=== PATIENT | male | born 1995 | race Caucasian/White ===

== ENCOUNTER 2017-02-25 12:59 | Emergency (ER) | payer SELFPAY ==
[2017-02-25 13:00] VITALS: BMI 26.4
[2017-02-25 13:03] VITALS: BP 134/83; PULSE 85; TEMP 98.6; O2SAT 97
--- NOTE | 2017-02-25 13:32 | C.PDOC ---
History Of Present Illness 21yo male, presents to ED with complaints of cough, congestion and throat pain for the past 2 days. Patient reports cough is associated with yellow sputum; denies any fever or chills. Of note, patient is also complaining of rash to his lower extremity; he states rash has been itchy and he has been scratching the area. Patient also wants to be tested for STD's. No other complaints. Time Seen by Provider: 02/25/17 13:08 Chief Complaint (Nursing): Abnormal Skin Integrity History Per: Patient History/Exam Limitations: no limitations Onset/Duration Of Symptoms: Days (2) Current Symptoms Are (Timing): Still Present Quality Of Symptoms: Itching Past Medical History Reviewed: Historical Data, Nursing Documentation, Vital Signs Vital Signs: Last Vital Signs Temp 98.6 F 02/25/17 13:02 Pulse 85 02/25/17 13:02 Resp 17 02/25/17 13:02 BP 134/83 02/25/17 13:02 Pulse Ox 97 02/25/17 13:44 - Medical History PMH: Anxiety, Depression Surgical History: Hernia Repair Family History: States: Unknown Family Hx - Social History Hx Tobacco Use: Yes Hx Alcohol Use: No Hx Substance Use: No Review Of Systems Constitutional: Negative for: Fever, Chills ENT: Positive for: Nose Congestion, Throat Pain Respiratory: Positive for: Cough, Sputum Skin: Positive for: Rash Physical Exam - Physical Exam Appears: Non-toxic Skin: Warm, Dry, Rash (left lower extremity with macular-papular lesion with erythema, consistent with early cellulitis.) Nose: Normal Oral Mucosa: Moist Throat: Normal, No Erythema, No Exudate Neck: Supple Respiratory: Normal Breath Sounds, No Wheezing Male Genital: Other (patient refused exam) ED Course And Treatment O2 Sat by Pulse Oximetry: 97 (RA) Pulse Ox Interpretation: Normal Medical Decision Making Medical Decision Making: Impression: Bronchitis, cellulitis Plan: -- Chlamydia, GC RNA/TMA -- Augmentin 1 tab PO -- Motrin 600 mg PO Disposition Counseled Patient/Family Regarding: Diagnosis, Need For Followup, Rx Given - Disposition Referrals: [facility] at [facility] [Outside] Disposition: HOME/ ROUTINE Disposition Time: 13:57 Condition: STABLE Additional Instructions: follow up with medical clinic in 2 days call to make an appointment take medications as prescribed return to hospital if symptoms worsens or progress Prescriptions: Amoxicillin/Clavulanate [Augmentin 875 MG-125 MG] 1 tab PO BID 10 Days #20 tab Benzonatate [Tessalon Perles] 100 mg PO TID PRN #15 sgl PRN Reason: Cough Instructions: Acute Bronchitis (ED), Cellulitis (ED) Forms: [facility] (German), General Discharge Instructions, School Excuse Print Language: HUNGARIAN - Clinical Impression Clinical Impression: Skin irritation, Cellulitis, Bronchitis - Scribe Statement The provider has reviewed the documentation as recorded by the Shu Enrique Provider Attestation: All medical record entries made by the Shu were at my direction and personally dictated by me. I have reviewed the chart and agree that the record accurately reflects my personal performance of the history, physical exam, medical decision making, and the department course for this patient. I have also personally directed, reviewed, and agree with the discharge instructions and disposition.
[2017-02-25] MEDS ORDERED: Amoxicillin-Clav 875-125 mg Tab PO STA (13:33)
[2017-02-25] MEDS ORDERED: Amoxicillin-Clav 875-125 mg Tab PO ONE (13:44)
[2017-02-25 14:10] VITALS: RESP 20
== END 2017-02-25 14:09 | disposition home or self-care (01) ==
LOC: C.ER 12:59
DX: J40 Bronchitis, not specified as acute or chronic (principal); L03.116 Cellulitis of left lower limb; L98.8 Other specified disorders of the skin and subcutaneous tissue

== ENCOUNTER 2017-08-14 14:48 | Emergency (ER) | payer MEDICAID, OTHER ==
[2017-08-14 14:48] VITALS: BMI 26.4
[2017-08-14 14:55] VITALS: TEMP 98.6; O2SAT 98
[2017-08-14 15:23] LABS: SQUAMOUS EPITHIAL < 1 /hpf (0-5); URINE BACTERIA RARE (<OCC); URINE BILIRUBIN NEGATIVE (NEGATIVE); URINE BLOOD 3+ (NEGATIVE); URINE CLARITY Hazy (Clear); URINE COLOR Amber (YELLOW); URINE GLUCOSE (UA) NORMAL (Normal); URINE LEUKOCYTE ESTERASE NEG Leu/uL (Negative); URINE PROTEIN 2+ mg/dL (NEGATIVE); URINE UROBILINOGEN NORMAL mg/dL (0.2-1.0)
[2017-08-14] MEDS ORDERED: cefTRIAXone (Rocephin) 250 mg Inj IM STA (15:29)
--- NOTE | 2017-08-14 16:06 | C.PDOC ---
History Of Present Illness Pt c/o dysuria Time Seen by Provider: 08/14/17 14:58 Chief Complaint (Nursing): Male Genitourinary History Per: Patient Onset/Duration Of Symptoms: Hrs (today) Current Symptoms Are (Timing): Still Present Severity: Moderate Quality Of Discomfort: Burning Associated Symptoms: Urinary Symptoms Alleviating Factors: None Additional History Per: Prior Records Past Medical History Reviewed: Historical Data, Nursing Documentation, Vital Signs Vital Signs: Last Vital Signs Temp 98.6 F 08/14/17 14:52 Pulse 95 H 08/14/17 14:52 Resp 17 08/14/17 14:52 BP 119/81 08/14/17 14:52 Pulse Ox 98 08/14/17 14:52 - Medical History PMH: Anxiety, Depression Surgical History: Hernia Repair Family History: States: Unknown Family Hx - Social History Hx Tobacco Use: Yes Hx Alcohol Use: No Hx Substance Use: No - Immunization History Hx Tetanus Toxoid Vaccination: No Hx Influenza Vaccination: No Hx Pneumococcal Vaccination: No Review Of Systems Except As Marked, All Systems Reviewed And Found Negative. Constitutional: Negative for: Fever, Weakness Cardiovascular: Negative for: Chest Pain Gastrointestinal: Negative for: Vomiting, Abdominal Pain Genitourinary: Positive for: Dysuria. Negative for: Scrotal Pain Musculoskeletal: Negative for: Back Pain Skin: Negative for: Rash Neurological: Negative for: Weakness, Numbness Physical Exam - Physical Exam Appears: Non-toxic, No Acute Distress Skin: Normal Color, Warm, Dry, No Rash Head: Atraumatic, Normacephalic Eye(s): bilateral: Normal Inspection, PERRL, EOMI Neck: Normal ROM, Supple Gastrointestinal/Abdominal: Soft, No Tenderness Back: No CVA Tenderness Male Genital: No Testicular Tenderness, No Testicular Swelling, No Scrotal Swelling Extremity: Normal ROM Neurological/Psych: Oriented x3, Normal Motor, Normal Sensation ED Course And Treatment O2 Sat by Pulse Oximetry: 98 Pulse Ox Interpretation: Normal Progress Note: Pt was treated with Rocephin 250mg IM and Zithromax 1g po. Disposition Counseled Patient/Family Regarding: Studies Performed, Diagnosis, Need For Followup - Disposition Referrals: [facility] at [facility] [Outside] Disposition: HOME/ ROUTINE Disposition Time: 16:05 Condition: STABLE Additional Instructions: Follow up in the clinic. Return to the ER if you develop scrotal pain, abdominal or back pain, fever, worsening of symptoms or if you have any other concerns. Instructions: Urethritis (DC) - Clinical Impression Clinical Impression: Urethritis
[2017-08-14 16:15] VITALS: BP 113/68; PULSE 78; RESP 16
== END 2017-08-14 16:14 | disposition home or self-care (01) ==
LOC: C.ER 14:48
DX: N34.2 Other urethritis (principal); Z72.0 Tobacco use
CPT/HCPCS: 81001; 87086; 87491; 87591; 96372; 99284; J0696

== ENCOUNTER 2017-10-18 12:42 | Emergency (ER) | payer MEDICAID, OTHER ==
[2017-10-18 12:42] VITALS: BMI 26.4
[2017-10-18 12:55] VITALS: BP 121/77; PULSE 70; TEMP 98.5; O2SAT 99
[2017-10-18] MEDS ORDERED: cefTRIAXone (Rocephin) 250 mg Inj IM STA (13:02)
[2017-10-18 13:27] LABS: SQUAMOUS EPITHIAL < 1 /hpf (0-5); URINE BACTERIA RARE (<OCC); URINE BILIRUBIN NEGATIVE (NEGATIVE); URINE BLOOD NEGATIVE (NEGATIVE); URINE CLARITY Clear (Clear); URINE COLOR Yellow (YELLOW); URINE GLUCOSE (UA) NORMAL (Normal); URINE LEUKOCYTE ESTERASE TRACE Leu/uL (Negative); URINE PROTEIN NEGATIVE (NEGATIVE); URINE UROBILINOGEN NORMAL mg/dL (0.2-1.0)
--- NOTE | 2017-10-18 13:48 | C.PDOC ---
History Of Present Illness 21 y/o male presents to ED with c/o dysuria, penile discharge and "blood in semen" for few days. Patient reports he is sexually active and is unsure of STD exposure. Patient denies abdominal pain, testicular pain, fever or rash. ( Martina Underwood) History Per: Patient History/Exam Limitations: no limitations Onset/Duration Of Symptoms: Days Current Symptoms Are (Timing): Still Present Associated Symptoms: Urinary Symptoms Time Seen by Provider: 10/18/17 13:02 Chief Complaint (Nursing): Male Genitourinary Past Medical History Reviewed: Historical Data, Nursing Documentation, Vital Signs - Medical History PMH: Anxiety, Depression Surgical History: Hernia Repair Family History: States: No Known Family Hx - Social History Hx Tobacco Use: Yes Hx Alcohol Use: Yes Hx Substance Use: Yes - Immunization History Hx Tetanus Toxoid Vaccination: No Hx Influenza Vaccination: No Hx Pneumococcal Vaccination: No Vital Signs: Last Vital Signs Temp 98.5 F 10/18/17 12:52 Pulse 70 10/18/17 12:52 Resp 20 10/18/17 13:56 BP 121/77 10/18/17 12:52 Pulse Ox 99 10/18/17 17:15 Review Of Systems Constitutional: Negative for: Fever, Chills Gastrointestinal: Negative for: Nausea, Vomiting, Abdominal Pain Genitourinary: Positive for: Dysuria, Penile Discharge. Negative for: Incontinence, Scrotal Pain, Rash, Penile Pain Skin: Negative for: Rash Physical Exam - Physical Exam Appears: Non-toxic, No Acute Distress Skin: Warm, Dry, No Rash Head: Atraumatic, Normacephalic Eye(s): bilateral: Normal Inspection, EOMI Oral Mucosa: Moist Neck: Normal ROM Chest: Symmetrical Male Genital: No Testicular Tenderness, No Testicular Swelling, No Scrotal Swelling, Circumcised, Other (No rash or discharge noted) Extremity: Normal ROM, Capillary Refill (<2 seconds) Neurological/Psych: Oriented x3, Normal Speech Gait: Steady - Physical Exam Additional Physical Exam Comments: 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 No signs of torsion or other concern Plan: * UA * G/C culture Patient treated for STI with Rocephin and Zithromax. Patient instructed to notify partners and will receive results in few days. (Martina Underwood) Disposition Counseled Patient/Family Regarding: Diagnosis, Need For Followup - Disposition Disposition Time: 13:46 - POA Present On Arrival: None - Disposition Disposition: HOME/ ROUTINE Condition: STABLE Additional Instructions: call back for results in 2-3 days for results [phone] Instructions: Urethritis (DC) Forms: [facility] - Clinical Impression Clinical Impression: Urethritis - PA / WIRER / Resident Statement MD/DO has reviewed & agrees with the documentation as recorded. - Scribe Statement The provider has reviewed the documentation as recorded by the Scribe - Scribe Statement Manisha Fung All medical record entries made by the Scribe were at my direction and personally dictated by me. I have reviewed the chart and agree that the record accurately reflects my personal performance of the history, physical exam, medical decision making, and the department course for this patient. I have also personally directed, reviewed, and agree with the discharge instructions and disposition. (Martina Underwood)
[2017-10-18 13:58] VITALS: RESP 20
== END 2017-10-18 13:56 | disposition home or self-care (01) ==
LOC: C.ER 12:42
DX: N34.2 Other urethritis (principal)
CPT/HCPCS: 81001; 87491; 87591; 96372; 99284; J0696

== ENCOUNTER 2017-11-11 07:49 | Emergency (ER) | payer MEDICAID ==
[2017-11-11 07:49] VITALS: BMI 26.4
[2017-11-11 07:56] VITALS: BP 118/79; PULSE 81; RESP 18; TEMP 98.1; O2SAT 96
--- NOTE | 2017-11-11 08:18 | C.PDOC ---
History Of Present Illness 21 y/o male presents to ED with c/o dental painf or 3 days. Time Seen by Provider: 11/11/17 07:57 Chief Complaint (Nursing): Dental Pain Past Medical History Vital Signs: Last Vital Signs Temp 98.1 F 11/11/17 07:53 Pulse 81 11/11/17 07:53 Resp 18 11/11/17 07:53 BP 118/79 11/11/17 07:53 Pulse Ox 96 11/11/17 08:18 - Medical History PMH: Anxiety, Depression Surgical History: Hernia Repair Family History: States: Unknown Family Hx - Social History Hx Tobacco Use: Yes Hx Alcohol Use: Yes Hx Substance Use: Yes - Immunization History Hx Tetanus Toxoid Vaccination: No Hx Influenza Vaccination: No Hx Pneumococcal Vaccination: No ED Course And Treatment O2 Sat by Pulse Oximetry: 96 Disposition - Disposition Forms: [email or web address] (Pashto)
--- NOTE | 2017-11-11 08:21 | C.PDOC ---
History Of Present Illness 21 y/o male with history of jaw fracture years ago presents to ED with c/o dental pain for 3 days worse with eating. Patient denies injury, fever, chills or any other complaints at this time. Time Seen by Provider: 11/11/17 07:57 Chief Complaint (Nursing): Dental Pain History Per: Patient History/Exam Limitations: no limitations Onset/Duration Of Symptoms: Days Current Symptoms Are (Timing): Still Present Pain Scale Rating Of: 7 Past Medical History Reviewed: Historical Data, Nursing Documentation, Vital Signs Vital Signs: Last Vital Signs Temp 98.1 F 11/11/17 07:53 Pulse 81 11/11/17 07:53 Resp 18 11/11/17 07:53 BP 118/79 11/11/17 07:53 Pulse Ox 96 11/11/17 08:26 - Medical History PMH: Anxiety, Depression Surgical History: Hernia Repair Family History: States: No Known Family Hx - Social History Hx Tobacco Use: Yes Hx Alcohol Use: Yes Hx Substance Use: Yes - Immunization History Hx Tetanus Toxoid Vaccination: No Hx Influenza Vaccination: No Hx Pneumococcal Vaccination: No Review Of Systems Constitutional: Negative for: Fever, Chills ENT: Positive for: Mouth Pain (tooth). Negative for: Mouth Swelling, Throat Pain Respiratory: Negative for: Cough Skin: Negative for: Rash Physical Exam - Physical Exam Appears: Non-toxic, No Acute Distress Skin: Warm, Dry, No Rash Head: Atraumatic, Normacephalic Eye(s): bilateral: Normal Inspection Oral Mucosa: Moist Teeth: Normal Dentition Gingiva: No Ulceration, Swelling (to front bottom tooth), No Bleeding, No Abscess Throat: Normal, No Erythema, No Exudate Neurological/Psych: Oriented x3, Normal Speech, Normal Cognition ED Course And Treatment O2 Sat by Pulse Oximetry: 96 (RA) Pulse Ox Interpretation: Normal Disposition - Disposition Disposition: ELOPEMENT - ER ONLY Disposition Time: 08:20 Condition: STABLE Forms: [facility] (Romanian) - Clinical Impression Clinical Impression: Dental caries - PA / BEARINGIZER / Resident Statement MD/DO has reviewed & agrees with the documentation as recorded. - Scribe Statement The provider has reviewed the documentation as recorded by the Lizbethibmemo Fung All medical record entries made by the Scribe were at my direction and personally dictated by me. I have reviewed the chart and agree that the record accurately reflects my personal performance of the history, physical exam, medical decision making, and the department course for this patient. I have also personally directed, reviewed, and agree with the discharge instructions and disposition.
[2017-11-11] MEDS ORDERED: Acetaminophen-Codeine 300/30 mg Tab PO STA (08:22)
[2017-11-11] MEDS ORDERED: Acetaminophen-Codeine 300/30 mg Tab PO ONE (08:31)
== END 2017-11-11 08:38 | disposition left against medical advice (07) ==
LOC: C.ER 07:49
DX: K02.9 Dental caries, unspecified (principal); Z72.0 Tobacco use

== ENCOUNTER 2017-12-06 10:09 | Emergency (ER) | payer MEDICAID ==
[2017-12-06 10:09] VITALS: BMI 26.4
[2017-12-06 10:16] VITALS: TEMP 98.1; O2SAT 97
[2017-12-06] MEDS ORDERED: Sodium Chloride 0.9% 1,000 ML IV ONE (11:06)
[2017-12-06 11:52] LABS: BASO % 0.7 % (0.0-2.0); EOS # 0.1 K/uL (0.0-0.7); EOS % 2.5 % (0.0-4.0); HEMOGLOBIN 15.2 g/dL (12.0-18.0); LYMPH # 2.4 K/uL (1.0-4.3); LYMPH % 43.7 % (20.0-40.0); MEAN CELL VOLUME 85.4 fL (80.0-94.0); MEAN CORPUSCULAR HEMOGLOBIN 29.8 pg (27.0-31.0); MEAN CORPUSCULAR HGB CONC 34.8 g/dL (33.0-37.0); MEAN PLATELET VOLUME 6.9 fL (7.2-11.7); MONO # 0.5 K/uL (0.0-0.8); MONO % 8.3 % (0.0-10.0); NEUT # 2.4 K/uL (1.8-7.0); NEUT % 44.8 % (50.0-75.0); NRBC % 0.1 % (0.0-2.0); RBC 5.11 Mil/uL (4.40-5.90); RED CELL DISTRIBUTION WIDTH 13.7 % (11.5-14.5); WHITE BLOOD COUNT 5.4 K/uL (4.8-10.8)
[2017-12-06] MEDS ORDERED: Sodium Chloride 0.9% 1,000 ML ONE (11:55)
[2017-12-06 12:06] LABS: ALB/GLOB RATIO 1.3 (1.0-2.1); ALBUMIN 4.2 g/dL (3.5-5.0); ALT/SGPT 54 U/L (21-72); AST/SGOT 43 U/L (17-59); BLOOD UREA NITROGEN 8 mg/dL (9-20); CALCIUM 9.3 mg/dl (8.6-10.4); GFR NON-AFRICAN AMERICAN > 60; LIPASE 54 U/L (23-300)
[2017-12-06 12:24] LABS: BARBITURATES, UR NEGATIVE (NEGATIVE); BENZODIAZEPINES, UR NEGATIVE (NEGATIVE); OPIATES, UR NEGATIVE (NEGATIVE); PHENCYCLIDINE, UR NEGATIVE (NEGATIVE)
[2017-12-06 12:27] LABS: SQUAMOUS EPITHIAL < 1 /hpf (0-5); URINE BILIRUBIN NEGATIVE (NEGATIVE); URINE BLOOD NEGATIVE (NEGATIVE); URINE CLARITY Hazy (Clear); URINE COLOR Amber (YELLOW); URINE GLUCOSE (UA) NORMAL (Normal); URINE LEUKOCYTE ESTERASE NEG Leu/uL (Negative); URINE PROTEIN NEGATIVE (NEGATIVE)
[2017-12-06] MEDS ORDERED: Magnesium Citrate Oral SOL (300 ml) PO ONE (12:42)
--- NOTE | 2017-12-06 13:03 | RAD ---
Date of service: 12/06/2017 PROCEDURE: Radiographs of the chest and abdomen (obstructive series) HISTORY: abd pain COMPARISON: Chest radiograph dated 03/22/2016; no prior abdominal imaging. TECHNIQUE: AP radiograph of the chest, with upright and supine radiographs of the abdomen. FINDINGS: CHEST: Lungs: Clear. Cardiovascular: Normal size heart. No pulmonary vascular congestion. Pleura: No pleural fluid. No pneumothorax. Other findings: None. ABDOMEN AND PELVIS: Bowel: Unremarkable bowel gas pattern. No evidence of mechanical obstruction. Free air: None. Bones: Unremarkable. Other findings: None. IMPRESSION: Unremarkable radiographs of chest and abdomen. No evidence of mechanical bowel obstruction.
[2017-12-06] MEDS ORDERED: Iodixanol 320 MG/ML 100 ML BOTTLE IV ONE (13:31)
[2017-12-06] MEDS ORDERED: Magnesium Citrate Oral SOL (300 ml) ONE (14:10)
--- NOTE | 2017-12-06 14:10 | CT ---
Date of service: 12/06/2017 PROCEDURE: CT Abdomen and Pelvis with intravenous contrast HISTORY: Abdominal pain COMPARISON: None. TECHNIQUE: Multiple contiguous axial images were performed through the abdomen and pelvis with the use of intravenous contrast. Subsequently, sagittal coronal reformatted images were obtained. Radiation dose: Total exam DLP = 687 mGy-cm. This CT exam was performed using one or more of the following dose reduction techniques: Automated exposure control, adjustment of the mA and/or kV according to patient size, and/or use of iterative reconstruction technique. FINDINGS: LOWER THORAX: Unremarkable. LIVER: Relative decreased attenuation seen within the liver at the level of the ligamentum teres at the level of the medial aspects of the right and left hepatic lobes suggestive for focal fatty infiltration. Clinical correlation. GALLBLADDER AND BILE DUCTS: Unremarkable. PANCREAS: Thickening and heterogeneity at the level of the pancreatic head with some adjacent fat stranding particularly at the level of the proximal duodenum which may represent mild pancreatitis. Alternatively, this may be reactive from a gastroduodenitis. Clinical correlation. Correlation with pancreatic enzyme levels is recommended. SPLEEN: Unremarkable. ADRENALS: Unremarkable. No mass. KIDNEYS AND URETERS: Unremarkable. No hydronephrosis. No solid mass. VASCULATURE: Unremarkable. No aortic aneurysm. BOWEL: Thickening of the stomach most prominent distally as well as the proximal duodenum suggestive for a gastroduodenitis. Clinical correlation. Adjacent fat stranding at the level of the distal stomach/proximal duodenum. Mild thickening of the sigmoid colon which may represent a mild colitis. Clinical correlation. APPENDIX: Unremarkable. Normal appendix. PERITONEUM: Free fluid noted within the posterior pelvic cul-de-sac. LYMPH NODES: Few shotty inguinal and para-aortic lymph nodes. BLADDER: Unremarkable. REPRODUCTIVE: Heterogeneous prostate. Questionable low-attenuation foci measuring 8 millimeters in the left aspect of the prostate on series 3, image 159, nonspecific. Clinical correlation. BONES: Degenerative changes in the spine. Mild retrolisthesis of L2 on L3. OTHER FINDINGS: None. IMPRESSION: 1. Thickening and heterogeneity at the level of the pancreatic head with some adjacent fat stranding particularly at the level of the proximal duodenum which may represent a mild pancreatitis. Alternatively, this may be reactive from a gastroduodenitis. Clinical correlation. Correlation with pancreatic enzyme levels is recommended. 2. Thickening of the stomach most prominent distally as well as the proximal duodenum suggestive for a gastroduodenitis. Clinical correlation. Adjacent fat stranding at the level of the distal stomach/proximal duodenum. 3. Mild thickening of the sigmoid colon which may represent a mild colitis. Clinical correlation. 4. Free fluid noted within the posterior pelvic cul-de-sac. 5. Heterogeneous prostate. Questionable low-attenuation foci measuring 8 millimeters in the left aspect of the prostate on series 3, image 159, nonspecific. Clinical correlation. 6. Relative decreased attenuation seen within the liver at the level of the ligamentum teres at the level of the medial aspects of the right and left hepatic lobes suggestive for focal fatty infiltration. Clinical correlation.
--- NOTE | 2017-12-06 14:20 | C.PDOC ---
History Of Present Illness 22 y/o male presents to ED with c/o abdominal pain intermittently 2 weeks. Patient states 3 weeks ago he was started on penicillin for dental infection and two days later the symptoms started. Patient started taking probiotics with some improvement. Also reports he did not finish course of penicillin. Patient had normal bowel movement yesterday but still feels full. Notes he tried to use bathroom today without success. Patient denies fever, chills, nausea, vomiting, chest pain, sob, dysuria, or testicular pain or any other complaints at this time. Time Seen by Provider: 12/06/17 10:14 Chief Complaint (Nursing): Abdominal Pain History Per: Patient History/Exam Limitations: no limitations Onset/Duration Of Symptoms: Days Current Symptoms Are (Timing): Still Present Location Of Pain/Discomfort: Epigastric Past Medical History Reviewed: Historical Data, Nursing Documentation, Vital Signs Vital Signs: Last Vital Signs Temp 98.1 F 12/06/17 15:00 Pulse 70 12/06/17 15:00 Resp 16 12/06/17 15:00 BP 113/72 12/06/17 15:00 Pulse Ox 97 12/06/17 17:46 - Medical History PMH: Anxiety, Depression Surgical History: Hernia Repair Family History: States: No Known Family Hx - Social History Hx Tobacco Use: Yes Hx Alcohol Use: Yes Hx Substance Use: Yes - Immunization History Hx Tetanus Toxoid Vaccination: No Hx Influenza Vaccination: No Hx Pneumococcal Vaccination: No Review Of Systems Constitutional: Negative for: Fever, Chills Gastrointestinal: Positive for: Abdominal Pain. Negative for: Nausea, Vomiting Genitourinary: Negative for: Dysuria, Hematuria Musculoskeletal: Negative for: Back Pain Physical Exam - Physical Exam Appears: Non-toxic, No Acute Distress Skin: Warm, Dry, No Rash Head: Atraumatic, Normacephalic Eye(s): bilateral: Normal Inspection, EOMI Nose: Normal Oral Mucosa: Moist Neck: Normal ROM, Supple Chest: Symmetrical Cardiovascular: Rhythm Regular Respiratory: Normal Breath Sounds, No Rales, No Rhonchi, No Wheezing Gastrointestinal/Abdominal: Soft, Tenderness (Epigastric), No Guarding, No Rebound Back: No CVA Tenderness Extremity: Normal ROM Neurological/Psych: Oriented x3, Normal Speech, Normal Cognition ED Course And Treatment - Laboratory Results Result Diagrams: 12/06/17 11:46 12/06/17 11:46 O2 Sat by Pulse Oximetry: 97 (RA) Pulse Ox Interpretation: Normal - Other Rad Obstructive series X-Ray: Viewed By Me, Read By Radiologist Interpretation: PROCEDURE: Radiographs of the chest and abdomen (obstructive series). HISTORY: abd pain. COMPARISON: Chest radiograph dated 03/22/2016; no prior abdominal imaging. TECHNIQUE: AP radiograph of the chest, with upright and supine radiographs of the abdomen. FINDINGS: CHEST: Lungs: Clear. Cardiovascular: Normal size heart. No pulmonary vascular congestion. Pleura: No pleural fluid. No pneumothorax. Other findings: None. ABDOMEN AND PELVIS: Bowel: Unremarkable bowel gas pattern. No evidence of mechanical obstruction. Free air: None. Bones: Unremarkable. Other findings: None. IMPRESSION: Unremarkable radiographs of chest and abdomen. No evidence of mechanical bowel obstruction. - CT Scan/US CT abd/pelvis Other Rad Studies (CT/US): Read By Radiologist, Radiology Report Reviewed CT/US Interpretation: PROCEDURE: CT Abdomen and Pelvis with intravenous contrast. HISTORY: Abdominal pain. COMPARISON: None. TECHNIQUE: Multiple contiguous axial images were performed through the abdomen and pelvis with the use of intravenous contrast. Subsequently, sagittal coronal reformatted images were obtained. Radiation dose: Total exam DLP = 687 mGy-cm. This CT exam was performed using one or more of the following dose reduction techniques: Automated exposure control, adjustment of the mA and/or kV according to patient size, and/or use of iterative reconstruction technique. FINDINGS: LOWER THO RAX: Unremarkable. LIVER: Relative decreased attenuation seen within the liver at the level of the ligamentum teres at the level of the medial aspects of the right and left hepatic lobes suggestive for focal fatty infiltration. Clinical correlation. GALLBLADDER AND BILE DUCTS: Unremarkable. PANCREAS: Thickening and heterogeneity at the level of the pancreatic head with some adjacent fat stranding particularly at the level of the proximal duodenum which may represent mild pancreatitis. Alternatively, this may be reactive from a gastroduodenitis. Clinical correlation. Correlation with pancreatic enzyme levels is recommended. SPLEEN: Unremarkable. ADRENALS: Unremarkable. No mass. KIDNEYS AND URETERS: Unremarkable. No hydronephrosis. No solid mass. VASCULATURE: Unremarkable. No aortic aneurysm. BOWEL: Thickening of the stomach most prominent distally as well as the proximal duodenum suggestive for a gastroduodenitis. Clinical correlation. Adjacent fat stranding at the level of the distal stomach/proximal duodenum. Mild thickening of the sigmoid colon which may represent a mild colitis. Clinical correlation. APPENDIX: Unremarkable. Normal appendix. PERITONEUM: Free fluid noted within the posterior pelvic cul-de-sac. LYMPH NODES: Few shotty inguinal and para-aortic lymph nodes. BLADDER: Unremarkable. REPRODUCTIVE: Heterogeneous prostate. Questionable low-attenuation foci measuring 8 millimeters in the left aspect of the prostate on series 3, image 159, nonspecific. Clinical correlation. BONES: Degenerative changes in the spine. Mild retrolisthesis of L2 on L3. OTHER FINDINGS: None. IMPRESSION: 1. Thickening and heterogeneity at the level of the pancreatic head with some adjacent fat stranding particularly at the level of the proximal duodenum which may represent a mild pancreatitis. Alternatively, this may be reactive from a gastroduodenitis. Clinical correlation. Correlation with pancreatic enzyme levels is recommended. 2. Thickening of the stomach most prominent distally as well as the proximal duodenum suggestive for a gastroduodenitis. Clinical correlation. Adjacent fat stranding at the level of the distal stomach/proximal duodenum. 3. Mild thickening of the sigmoid colon which may represent a mild colitis. Clinical correlation. 4. Free fluid noted within the posterior pelvic cul-de-sac. 5. Heterogeneous prostate. Questionable low-attenuation foci measuring 8 millimeters in the left aspect of the prostate on series 3, image 159, nonspecific. Clinical correlation. 6. Relative decreased attenuation seen within the liver at the level of the ligamentum teres at the level of the medial aspects of the right and left hepatic lobes suggestive for focal fatty infiltration. Clinical correlation. Progress Note: Toradol, Maalox and Protonix administered. On re-evaluation, patient is resting comfortably, abdomen remains soft, and patient is tolerating PO. Afebrile. Lipase WNL. Case discussed with Dr Laguerre, agreed upon plan and treatment. Disposition - Disposition Referrals: Pablito Diaz [Staff Provider] - Disposition: HOME/ ROUTINE Disposition Time: 15:01 Condition: STABLE Additional Instructions: Follow up with your primary medical doctor or clinic in 2-5 days for further evaluation. Take medications as prescribed. Return to the emergency department at any time if symptoms persist or worsen. Prescriptions: Ciprofloxacin [Cipro] 1 tab PO BID #14 tab Metronidazole [Flagyl] 500 mg PO BID #14 tab Polyethylene Glycol 3350 [Miralax] 17 gm PO DAILY #85 gm Instructions: Acute Abdomen (Belly Pain), Adult (DC) Forms: [employer] (Afghan) - Clinical Impression Clinical Impression: Abdominal pain - PA / SENIOR FINANCIAL REPORTING ANALYST / Resident Statement MD/DO has reviewed & agrees with the documentation as recorded. - Scribe Statement The provider has reviewed the documentation as recorded by the Lizbethibmemo Fung All medical record entries made by the Lizbethibmemo were at my direction and personally dictated by me. I have reviewed the chart and agree that the record accurately reflects my personal performance of the history, physical exam, medical decision making, and the department course for this patient. I have also personally directed, reviewed, and agree with the discharge instructions and disposition.
[2017-12-06 15:36] VITALS: BP 113/72; PULSE 70; RESP 16
== END 2017-12-06 15:15 | disposition home or self-care (01) ==
LOC: C.ER 10:09
DX: R10.9 Unspecified abdominal pain (principal)
CPT/HCPCS: 74022; 74177; 80053; 80324; 80345; 80346; 80349; 80353; 80358; 80361; 81001; 83690; 83992; 85025; 96361; 96374; 96375; 99285; C9113; J1885; J7030; Q9967

== ENCOUNTER 2018-02-20 19:51 | Emergency (ER) | payer MEDICAID ==
[2018-02-20 19:51] VITALS: BMI 26.4
[2018-02-20 20:02] VITALS: BP 141/83; PULSE 96; RESP 18; TEMP 97.9; O2SAT 97
--- NOTE | 2018-02-20 20:16 | C.PDOC ---
History Of Present Illness 22 year old male presents to the ED for evaluation of vague anxiety about health. Admits to daily use of marijuana and ingestion of cocaine 3 days ago. Denies SI/HI. 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 This is the 6th ED visit in [address] and XRays results are negative. Previous blood work is only consistent with Chlamydia and Gonorrhea. Patient denies any dysuria, penile discharge. Reports poor appetite but notes it has been improving recently. Denies any weight gain or loss. Denies psychiatry history. Time Seen by Provider: 02/20/18 20:07 Chief Complaint (Nursing): Medical Clearance History Per: Patient History/Exam Limitations: no limitations Onset/Duration Of Symptoms: Days Current Symptoms Are (Timing): Still Present Reports Recently: Seen In ED Past Medical History Reviewed: Historical Data, Nursing Documentation, Vital Signs Vital Signs: Last Vital Signs Temp 97.9 F 02/20/18 19:55 Pulse 96 H 02/20/18 19:55 Resp 18 02/20/18 19:55 BP 141/83 02/20/18 19:55 Pulse Ox 97 02/20/18 19:55 - Medical History PMH: Anxiety, Depression Surgical History: Hernia Repair Family History: States: No Known Family Hx - Social History Hx Tobacco Use: Yes Hx Alcohol Use: No Hx Substance Use: Yes - Immunization History Hx Tetanus Toxoid Vaccination: No Hx Influenza Vaccination: No Hx Pneumococcal Vaccination: No Review Of Systems Except As Marked, All Systems Reviewed And Found Negative. Constitutional: Negative for: Fever, Chills ENT: Negative for: Ear Pain, Throat Pain Respiratory: Negative for: Cough, Shortness of Breath Genitourinary: Negative for: Dysuria, Hematuria, Penile Discharge Psych: Positive for: Anxiety. Negative for: Suicidal ideation Physical Exam - Physical Exam Appears: Non-toxic, Other (anxious, thin, bizarre effect, tattoos ) Skin: Warm, Dry, No Rash Head: Normacephalic Eye(s): bilateral: Normal Inspection Nose: Normal Oral Mucosa: Moist Neck: Supple Chest: Symmetrical Cardiovascular: Rhythm Regular Respiratory: Normal Breath Sounds, No Rales, No Rhonchi, No Wheezing Extremity: Bilateral: Atraumatic, Normal Color And Temperature, Normal ROM Neurological/Psych: Oriented x3, Normal Speech Gait: Steady ED Course And Treatment O2 Sat by Pulse Oximetry: 97 (RA) Pulse Ox Interpretation: Normal Medical Decision Making Medical Decision Making: Impression: Anxiety about health Differentials: ? underlying psych vs continued substance abuse- cocaine/marijuana no SI/HI refer for opt f/u Disposition Doctor Will See Patient In The: Office Counseled Patient/Family Regarding: Studies Performed, Diagnosis - Disposition Referrals: [employer] [facility] [Outside] [employer] [facility] [Outside] Pending sale to [facility] [employer] [place] [Outside] [facility] [Outside] [facility] [employer] [Outside] Disposition: HOME/ ROUTINE Disposition Time: 20:17 Condition: GOOD Additional Instructions: outpatient follow-up with [facility]- they can help you with life skills and substance abuse issues avoid marijuana and cocaine abuse- this may lead to mood disorders Seek gainful employment- Good to have a gainful daily routine. remember some jobs will use drug screens. Instructions: Anxiety, Adult (DC), Drug Abuse and Drug Addiction (DC), Marijuana Use and Addiction, Cocaine Forms: [employer] (Israeli) - Clinical Impression Clinical Impression: Anxiety about health - Scribe Statement The provider has reviewed the documentation as recorded by the Scribe Dang Cedeño All medical record entries made by the Scribe were at my direction and personally dictated by me. I have reviewed the chart and agree that the record accurately reflects my personal performance of the history, physical exam, medical decision making, and the department course for this patient. I have also personally directed, reviewed, and agree with the discharge instructions and disposition.
== END 2018-02-20 20:33 | disposition home or self-care (01) ==
LOC: C.ER 19:51
DX: F41.9 Anxiety disorder, unspecified (principal); Z72.0 Tobacco use

== ENCOUNTER 2018-07-24 13:24 | Emergency (ER) | payer MEDICAID ==
[2018-07-24 13:39] VITALS: BMI 25.1
[2018-07-24 13:44] VITALS: BP 116/76; PULSE 109; RESP 18; TEMP 97.9; O2SAT 98
[2018-07-24] MEDS ORDERED: Magnesium Citrate Oral SOL (300 ml) PO ONE (13:59)
--- NOTE | 2018-07-24 14:00 | C.PDOC ---
History Of Present Illness 22 year old male presents to the ED complaining of abdominal discomfort. Associated symptoms include constipation. Denies any bowel movements today. 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 Pt has a hx of multiple prior evaluations for abdominal pain with no findings. Denies any fever, chills, nausea, vomiting, diarrhea, back pain, chest pain, or urinary symptoms. Time Seen by Provider: 07/24/18 13:54 Chief Complaint (Nursing): Abdominal Pain History Per: Patient History/Exam Limitations: no limitations Onset/Duration Of Symptoms: Days Current Symptoms Are (Timing): Still Present Context: Food Location Of Pain/Discomfort: Diffuse Radiation Of Pain To:: None Quality Of Discomfort: Other (discomfort) Associated Symptoms: Constipation. denies: Fever, Chills, Nausea, Vomiting, Diarrhea, Back Pain, Chest Pain, Urinary Symptoms Past Medical History Reviewed: Historical Data, Nursing Documentation, Vital Signs Vital Signs: Last Vital Signs Temp 97.9 F 07/24/18 13:39 Pulse 109 H 07/24/18 13:39 Resp 18 07/24/18 13:39 BP 116/76 07/24/18 13:39 Pulse Ox 98 07/24/18 13:39 Primary Care Provider: FAMILY PROVIDER,NO - Medical History PMH: Anxiety, Depression Denies: Chronic Kidney Disease Surgical History: Hernia Repair Family History: States: No Known Family Hx - Social History Hx Tobacco Use: Yes Hx Alcohol Use: No Hx Substance Use: Yes (marijuana) - Immunization History Hx Tetanus Toxoid Vaccination: No Hx Influenza Vaccination: No Hx Pneumococcal Vaccination: No Review Of Systems Except As Marked, All Systems Reviewed And Found Negative. Constitutional: Negative for: Fever, Chills Cardiovascular: Negative for: Chest Pain Respiratory: Negative for: Cough, Shortness of Breath Gastrointestinal: Positive for: Abdominal Pain, Constipation. Negative for: Nausea, Vomiting, Diarrhea, Hematemesis Genitourinary: Negative for: Dysuria Musculoskeletal: Negative for: Back Pain Physical Exam - Physical Exam Appears: Non-toxic, No Acute Distress, Other (anxious, strong marijuana smell ) Skin: Warm, Dry, No Rash Head: Normacephalic Eye(s): bilateral: Normal Inspection, PERRL, EOMI Nose: Normal Oral Mucosa: Moist Neck: Supple Chest: Symmetrical Cardiovascular: Rhythm Regular Respiratory: Normal Breath Sounds, No Rales, No Rhonchi, No Wheezing Gastrointestinal/Abdominal: Bowel Sounds (Normoactive ), Soft, No Tenderness, No Distention, No Guarding, No Rebound, Other (Dull to percussion throughout abdomen, Neg Mcburney's sign, Neg Dominguez's sign ) Extremity: Bilateral: Atraumatic, Normal Color And Temperature, Normal ROM Neurological/Psych: Oriented x3, Normal Speech Gait: Steady ED Course And Treatment O2 Sat by Pulse Oximetry: 98 (RA) Pulse Ox Interpretation: Normal Medical Decision Making Medical Decision Making: Plan - Citrate of Mag 300ml prob constipation vs indigestion due to Fast Food diet, then microwaved empiric laxative therapy and re-eval PRN defer w/u w informed consent. Disposition Doctor Will See Patient In The: Office Counseled Patient/Family Regarding: Studies Performed, Diagnosis - Disposition Referrals: [employer] [facility] [Outside] [email or web address] [facility] [Outside] [facility] [Outside] [employer] [Outside] Disposition: HOME/ ROUTINE Disposition Time: 14:00 Condition: GOOD Additional Instructions: drink entire bottle of laxative now and re-evaluate your abdominal discomfort after using the bathroom 2-3 times diet and exercise changes 7 fresh fruits and vegetables/day drink more water empiric laxative therapies if symptoms recur Instructions: Constipation in Adults, Dyspepsia Forms: [email or web address] (Italian) - Clinical Impression Clinical Impression: Abdominal discomfort - Scribe Statement The provider has reviewed the documentation as recorded by the Scribe Dang Cedeño All medical record entries made by the Scribe were at my direction and personally dictated by me. I have reviewed the chart and agree that the record accurately reflects my personal performance of the history, physical exam, medical decision making, and the department course for this patient. I have also personally directed, reviewed, and agree with the discharge instructions and disposition.
[2018-07-24] MEDS ORDERED: Magnesium Citrate Oral SOL (300 ml) ONE (14:08)
== END 2018-07-24 14:09 | disposition home or self-care (01) ==
LOC: C.ER 13:24
DX: R10.9 Unspecified abdominal pain (principal)